=== PATIENT | male | born 1960 | race Caucasian/White ===

== ENCOUNTER 2021-02-23 15:01 | Emergency (ER) | payer MEDICAID ==
[~2021-02-23] VITALS: Ht 182.9 cm; Wt 129.0 kg
[~2021-02-23 15:01] MED LIST: ALBU8.5H17 INH; ATRIN IH; BUDE10.2 INH; GABA300C PO; IPRA3AMP9 IH; LEVE10002 PO; PRED20TA PO
[2021-02-23 15:28] VITALS: BP 159/85
== END 2021-02-23 20:34 | disposition left against medical advice (07) ==
LOC: MERGE 15:02 → ER 15:02
DX: R00.1 Bradycardia, unspecified (principal); Z53.21 Procedure and treatment not carried out due to patient leaving prior to being seen by health care provider
CPT/HCPCS: 93005

== ENCOUNTER 2021-02-25 00:40 | Inpatient (IN) | payer MEDICAID, OTHER ==
[~2021-02-25] VITALS: Ht 188 cm; Wt 135.0 kg
[2021-02-25] MEDS ORDERED: normal saline 1000ML IV soln IVB ONE (00:45)
[2021-02-25] MEDS ORDERED: diazepam inj 5 MG/ML inj. IV ONE (00:45)
[2021-02-25] MEDS ORDERED: LORazepam 2 mg/ml vial IM ONE (00:45)
[2021-02-25] MEDS ORDERED: haloperidol lactate 5mg/ml inj IM ONE (00:45)
[2021-02-25] MEDS ORDERED: diphenhydrAMINE 50 mg/ml inj IM ONE (00:45)
[2021-02-25] MEDS ORDERED: ketamine 10mg/ml 20ml inj vial IM ONE (01:00)
[2021-02-25] MEDS ORDERED: ketamine 50mg/5ml syringe IM ONE (01:05)
[2021-02-25] MEDS ORDERED: ketamine 50mg/5ml syringe ONE (01:06)
[2021-02-25 01:11] LABS: BASOPHILS # (AUTO) 0.1 X10'3 (0-0.2); BASOPHILS % (AUTO) 0.4 % (0-1); EOSINOPHILS % (AUTO) 0.3 % (0-6); HEMATOCRIT 35.5 % (42.0-52.0); LYMPHOCYTES # (AUTO) 1.9 X10'3 (1.1-4.8); LYMPHOCYTES % (AUTO) 12.6 % (21-51); MEAN CORPUSCULAR HEMOGLOBIN 31.6 PG (27.0-31.0); MEAN CORPUSCULAR HGB CONC 33.9 g/dL (33.0-36.5); MEAN CORPUSCULAR VOLUME 93.3 FL (78-98); MEAN PLATELET VOLUME 8.5 FL (7.4-10.4); MONOCYTES # (AUTO) 1.5 X10'3 (0-0.9); NEUTROPHILS # (AUTO) 11.3 X10'3 (1.8-7.7); NEUTROPHILS % (AUTO) 76.7 % (42-75); PLATELET COUNT 226 X10'3 (140-440); RED BLOOD COUNT 3.81 X10'6 (4.70-6.10); RED CELL DISTRIBUTION WIDTH 12.9 % (11.5-14.5); WHITE BLOOD COUNT 14.8 X10'3 (4.5-11.0)
[2021-02-25 01:20] LABS: CLARITY,URINE CLEAR (Clear); COLOR,URINE YELLOW (Yellow); GLUCOSE, URINE NEGATIVE (Neg); KETONES,URINE 15 mg/dl (Neg); LEUKOCYTE ESTERASE ,URINE NEGATIVE (Neg); NITRITES, URINE NEGATIVE (Neg); OCCULT BLOOD,URINE TRACE-INTACT (Neg); PROTEIN,URINE 100 mg/dl (Neg)
[2021-02-25 01:22] LABS: UA COLLECTION TYPE STRAIGHT CATH
--- NOTE | 2021-02-25 01:23 | NUR ---
0121 PT HR 178 SVT BP 114/53 SPO2 100 ON 15 LPM NRB MASK RR 33 CO2 39 6MG ADENOSINE IN NO CHANGE 12MG ADENOSINE IN NO CHANGE FINAL 12MG ADENOSINE IN NO CHANGE 0126 150MG AMIODARONE PUSH
[2021-02-25 01:28] LABS: BACTERIA,URINE NONE SEEN /HPF (Neg); RBC,URINE 0-2 /HPF (0-2); WBC,URINE 0-4 /HPF (0-4)
[2021-02-25 01:29] LABS: MUCUS STRANDS FEW /LPF (Neg); SQUAMOUS EPITHELIAL CELL,UR FEW /LPF (FEW)
[2021-02-25 01:33] LABS: LACTIC SEPSIS 13.7 MMOL/L (0.4-2.0)
[2021-02-25] MEDS ORDERED: adenosine 3mg/ml 2ml vial IV ONE ×4 (01:35→09:00)
[2021-02-25] MEDS ORDERED: amiodarone 50MG/ML inj IV ONE ×2 (01:35→09:00)
[2021-02-25 01:36] LABS: ALANINE AMINOTRANSFERASE 32 U/L (12-78); ALBUMIN 3.6 G/DL (3.4-5.0); ALBUMIN/GLOBULIN RATIO 1.1 (1.1-1.5); ALKALINE PHOSPHATASE 79 IU/L (46-116); ANION GAP 20 (8-16); ASPARTATE AMINO TRANSFERASE 68 U/L (10-37); BILIRUBIN,TOTAL 0.8 MG/DL (0.1-1.0); BLOOD UREA NITROGEN 37 MG/DL (7-18); BUN/CREATININE RATIO 19.5 (5.4-32.0); CALCIUM 8.8 MG/DL (8.5-10.1); CHLORIDE 106 MMOL/L (99-107); GLUCOSE 125 MG/DL (70-104); POTASSIUM 4.9 MMOL/L (3.5-5.1); SODIUM 148 MMOL/L (135-145); TOTAL CARBON DIOXIDE 22.3 MMOL/L (24-32); TOTAL PROTEIN 6.9 G/DL (6.4-8.2); eGFR 37 ML/MIN
[2021-02-25 01:36] LABS: URINE AMPHETAMINE SCREEN POSITIVE (Neg); URINE BARBITUATE SCREEN NEGATIVE (Neg); URINE BENZODIAZEPINES SCREEN NEGATIVE (Neg); URINE CANNABINOID SCREEN POSITIVE (Neg); URINE COCAINE SCREEN NEGATIVE (Neg); URINE METHADONE SCREEN NEGATIVE (Neg); URINE OPIATE SCREEN NEGATIVE (Neg); URINE PHENCYCLIDINE SCREEN NEGATIVE (Neg)
[2021-02-25] MEDS ORDERED: amiodarone 150mg/dext, iso-os 100 ML IV ONE (01:40)
[2021-02-25 01:47] LABS: CKMB RELATIVE INDEX 0.4 RATIO (0-2.5); CREATINE KINASE 1833 U/L (39-308); ETHANOL < 0.010 GM/DL (0.0-0.010); TROPONIN I < 0.04 NG/ML (0.0-0.05)
[2021-02-25] MEDS ORDERED: LIDOcaine 2% 10ml TOPICAL JELLY (Urojet) TP ONE (01:55)
[2021-02-25] MEDS ORDERED: normal saline 1000ML IV soln IV ONE (01:55)
[2021-02-25] MEDS ORDERED: acetaminophen 1,000mg/100ml IV 100 ML IV ONE (03:29)
[2021-02-25 03:59] LABS: ABG BASE EXCESS -4.9 mmol/L (-2.0-2.0); ABG OXYGEN SATURATION 96.1 % (94-97); ABG PCO2 (T) 43.8 mmHg (35.0-48.0); ABG PO2 (T) 93.1 mmHg (75.0-100.0); ALLEN'S TEST Modified; FCOHb 0.4 % (0.0-3.9); FLOW 4 L/min; FMetHb 0.2 % (0.0-1.5); FO2Hb 95.5 % (94-97); PATIENT TEMPERATURE 37.9; TOTAL HEMOGLOBIN 11.9 G/dl (14.0-18.0)
[2021-02-25] MEDS ORDERED: ondansetron/PF 4mg/2ml inj IV PRN (05:45)
[2021-02-25] MEDS ORDERED: magnesium hydroxide 30ml (MOM) UD suspension PO PRN (05:45)
[2021-02-25] MEDS ORDERED: acetaminophen 325mg tablet PO PRN (05:45)
[2021-02-25] MEDS ORDERED: mag hydrox/Alum hydrox/simeth 30ml oral suspension PO PRN (05:45)
[2021-02-25] MEDS ORDERED: morphine 2 MG/ML inj. syringe IV PRN ×2 (05:45)
[2021-02-25] MEDS: docusate sod 100mg capsule PO SCH ×2 (07:16→20:00)
[2021-02-25 07:58] LABS: PHOSPHORUS 4.6 MG/DL (2.3-4.5)
[2021-02-25] MEDS ORDERED: magnesium Cl slow-release 64mg tablet PO PRN (08:20)
[2021-02-25] MEDS ORDERED: magnesium 4gm in 100ml NS 100 ML IV PRN (08:20)
[2021-02-25] MEDS ORDERED: haloperidol 5mg tablet PO PRN (08:20)
[2021-02-25] MEDS ORDERED: haloperidol lactate 5mg/ml inj IM PRN (08:20)
[2021-02-25] MEDS ORDERED: potassium Cl 40MEQ/1/2NS 520ml 520 ML IV PRN (08:20)
[2021-02-25] MEDS: dextrose 5%-1/2 normal saline 1,000 ML IV SCH ×3 (08:42→23:18)
[2021-02-25] MEDS: thiamine inj. 100 MG in normal saline 100ml IV soln 100 ML IV SCH (10:54)
[2021-02-25] MEDS ORDERED: UMEC62.5 PO (11:02)
[2021-02-25] MEDS ORDERED: ALBU8.5H17 IH (11:02)
[2021-02-25] MEDS ORDERED: LISI10TA27 PO (11:02)
[2021-02-25] MEDS: folic acid 1mg/0.2ml inj IV SCH (11:54)
--- NOTE | 2021-02-25 16:59 | NUR ---
RECEIVED REPORT FROM SOFÍA IN ER. PT ARRIVED TO FLOOR AT 1645. PT IN ROOM 4020A
[2021-02-25 18:00] VITALS: BP 154/70
--- NOTE | 2021-02-25 18:50 | NUR ---
Problems reprioritized. Patient report given, questions answered & plan of care reviewed with ALVARO ESPINOZA.
[2021-02-25] MEDS: K and/or MAG REPLACEMENT MC SCH (20:00)
[2021-02-25] MEDS: ipratropium 0.5 MG/2.5ML nebule NEB SCH (20:27)
[2021-02-25] MEDS: albuterol 2.5 MG/3 ML nebule NEB PRN (20:27)
[2021-02-25] MEDS: nicotine 14mg patch - 24hr TD SCH (21:07)
[2021-02-25] MEDS: LORazepam 2 mg/ml vial IV PRN (21:07)
[2021-02-25 22:00] VITALS: BP 117/52
--- NOTE | 2021-02-25 22:50 | NUR ---
Critical result from lab received. Gram + cocci in clusters growing. Paged Dr Siu. Will start abx.
[2021-02-26] MEDS: vancomycin/NS 1 GM ADD-VANTAGE 250 ML IV SCH ×3 (00:28→23:52)
[2021-02-26] MEDS: ipratropium 0.5 MG/2.5ML nebule NEB SCH ×4 (02:06→20:40)
[2021-02-26] MEDS: LORazepam 2 mg/ml vial IV PRN ×2 (03:07→20:06)
[2021-02-26 06:00] VITALS: BP 126/65
--- NOTE | 2021-02-26 06:25 | NUR ---
Patient in room [facility]TH[facility] 4020a. I have received report from ALVARO Moralez and had the opportunity to ask questions and assume patient care.
[2021-02-26 07:19] LABS: BASOPHILS % (AUTO) 0.2 % (0-1); EOSINOPHILS # (AUTO) 0.1 X10'3 (0-0.9); EOSINOPHILS % (AUTO) 0.6 % (0-6); HEMATOCRIT 33.3 % (42.0-52.0); HEMOGLOBIN 11.8 g/dl (14.0-17.9); LYMPHOCYTES # (AUTO) 1.6 X10'3 (1.1-4.8); LYMPHOCYTES % (AUTO) 15.9 % (21-51); MEAN CORPUSCULAR HEMOGLOBIN 32.3 PG (27.0-31.0); MEAN CORPUSCULAR HGB CONC 35.3 g/dL (33.0-36.5); MEAN CORPUSCULAR VOLUME 91.6 FL (78-98); MEAN PLATELET VOLUME 8.3 FL (7.4-10.4); MONOCYTES % (AUTO) 9.6 % (2-12); NEUTROPHILS # (AUTO) 7.5 X10'3 (1.8-7.7); NEUTROPHILS % (AUTO) 73.7 % (42-75); PLATELET COUNT 131 X10'3 (140-440); RED BLOOD COUNT 3.64 X10'6 (4.70-6.10); RED CELL DISTRIBUTION WIDTH 13.1 % (11.5-14.5); WHITE BLOOD COUNT 10.2 X10'3 (4.5-11.0)
[2021-02-26] MEDS: lisinopril 10 MG tablet PO SCH (07:53)
[2021-02-26] MEDS: folic acid 1mg/0.2ml inj IV SCH (08:00)
[2021-02-26] MEDS ORDERED: folic acid inj. 2 MG, thiamine inj. 100 MG, MVI, adult No.4 with vit. K 10 ML in dextro... IV SCH ×4 (08:00)
[2021-02-26] MEDS ORDERED: CefTRIAXone 2gm/D5W 50ml BAG 50 ML IV SCH (08:00)
[2021-02-26] MEDS: docusate sod 100mg capsule PO SCH ×2 (08:00→20:00)
[2021-02-26] MEDS: K and/or MAG REPLACEMENT MC SCH ×2 (08:00→20:00)
[2021-02-26] MEDS: thiamine inj. 100 MG in normal saline 100ml IV soln 100 ML IV SCH (08:45)
[2021-02-26] MEDS ORDERED: PERFLUTREN PROTEIN-A MICROSPHR (Optison) 0.22 MG/ML 3ML VIAL IV ONE (09:25)
[2021-02-26 09:57] LABS: ALANINE AMINOTRANSFERASE 75 U/L (12-78); ALBUMIN 2.5 G/DL (3.4-5.0); ALBUMIN/GLOBULIN RATIO 0.9 (1.1-1.5); ALKALINE PHOSPHATASE 60 IU/L (46-116); AMYLASE 13 U/L (25-115); ANION GAP 10 (8-16); ASPARTATE AMINO TRANSFERASE 252 U/L (10-37); BILIRUBIN,TOTAL 0.7 MG/DL (0.1-1.0); BLOOD UREA NITROGEN 21 MG/DL (7-18); BUN/CREATININE RATIO 25.3 (5.4-32.0); CHLORIDE 105 MMOL/L (99-107); CREATININE 0.83 MG/DL (0.60-1.10); GLUCOSE 127 MG/DL (70-104); LIPASE < 50 U/L (73-393); MAGNESIUM 2.2 MG/DL (1.5-2.4); PHOSPHORUS 1.8 MG/DL (2.3-4.5); SODIUM 141 MMOL/L (135-145); TOTAL CARBON DIOXIDE 25.9 MMOL/L (24-32); TOTAL PROTEIN 5.2 G/DL (6.4-8.2); eGFR > 90 ML/MIN
[2021-02-26 10:00] VITALS: BP 162/81
[2021-02-26 10:01] LABS: POTASSIUM 2.8 MMOL/L (3.5-5.1)
--- NOTE | 2021-02-26 10:04 | NUR ---
Page Sent PAGER ID: [phone] MESSAGE: GEORGES [id number] RE: SVETLANA TORRES [id number] PT'S HAS CRITICAL K+ 2.8. WILL BEGIN REPLACEMENT. THANKS
--- NOTE | 2021-02-26 11:05 | NUR ---
Malnutrition Consult: Pt admit DX acute encephalopathy, meth abuse, SHILOH, and possible rhabdomyolysis r/t meth per MD note. Pt has no significant weakness noted, PO 50% first regular diet meal last night, appears well-developed and obese per ER note, and pending scaled wt this admit. Noted BLE +2 edema present however pt appears well-nourished during RD visit and currently lacks minimum two malnutrition criteria at this time. Will continue to monitor for additional malnutrition criteria this admit. Addendum: 02/26/21 at [address] Amended: Links added.
[2021-02-26] MEDS: dextrose 5%-1/2 normal saline 1,000 ML IV SCH ×2 (11:08→21:45)
[2021-02-26] MEDS: piperacillin/tazo 3.375gm/50ml 50 ML IV SCH ×2 (11:08→17:44)
[2021-02-26] MEDS: potassium Cl 20 mEq SR tablet PO PRN ×3 (11:08→20:06)
--- NOTE | 2021-02-26 11:57 | NUR ---
Page Sent PAGER ID: [phone] MESSAGE: GEORGES [phone] RE: SVETLANA TORRES [id number] PT'S PHOSPHORUS WAS LOW, 1.8. WOULD YOU LIKE ME TO REPLACE? THANK YOU
--- NOTE | 2021-02-26 13:43 | NUR ---
Page Sent PAGER ID: [phone] MESSAGE: GEORGES [phone] RE: SVETLANA TORRES 2090A PT HAS HAD LOOSE STOOL SINCE YESTERDAY. SENDING STOOL SAMPLE TO LAB. CAN I GET AN ORDER FOR IMMODIUM? THANK YOU
[2021-02-26] MEDS: loperamide 2mg capsule PO PRN (13:57)
[2021-02-26 17:33] LABS: C DIFF ANTIGEN NEGATIVE (NEGATIVE); C DIFF SPECIMEN=DIARRHEA? ACCEPTABLE; C DIFFICILE TOXINS A&B NEGATIVE (Neg)
[2021-02-26 18:00] VITALS: BP 104/61
--- NOTE | 2021-02-26 18:39 | NUR ---
Problems reprioritized. Patient report given, questions answered & plan of care reviewed with ALVARO CARABALLO.
[2021-02-26] MEDS: nicotine 14mg patch - 24hr TD SCH (20:09)
[2021-02-26] MEDS: albuterol 2.5 MG/3 ML nebule NEB PRN (20:40)
[2021-02-26 22:00] VITALS: BP 99/57
[2021-02-27] MEDS: piperacillin/tazo 3.375gm/50ml 50 ML IV SCH ×3 (01:30→15:35)
[2021-02-27] MEDS: ipratropium 0.5 MG/2.5ML nebule NEB SCH ×4 (02:39→21:03)
[2021-02-27 06:00] VITALS: BP 110/53
[2021-02-27 06:25] LABS: BASOPHILS % (AUTO) 0.4 % (0-1); EOSINOPHILS # (AUTO) 0.3 X10'3 (0-0.9); EOSINOPHILS % (AUTO) 2.9 % (0-6); HEMATOCRIT 35.1 % (42.0-52.0); HEMOGLOBIN 12.1 g/dl (14.0-17.9); LYMPHOCYTES # (AUTO) 1.4 X10'3 (1.1-4.8); MEAN CORPUSCULAR HEMOGLOBIN 32.3 PG (27.0-31.0); MEAN CORPUSCULAR HGB CONC 34.5 g/dL (33.0-36.5); MEAN CORPUSCULAR VOLUME 93.6 FL (78-98); MEAN PLATELET VOLUME 8.4 FL (7.4-10.4); MONOCYTES # (AUTO) 0.7 X10'3 (0-0.9); MONOCYTES % (AUTO) 7.9 % (2-12); NEUTROPHILS # (AUTO) 6.4 X10'3 (1.8-7.7); NEUTROPHILS % (AUTO) 72.8 % (42-75); PLATELET COUNT 147 X10'3 (140-440); RED BLOOD COUNT 3.75 X10'6 (4.70-6.10); RED CELL DISTRIBUTION WIDTH 13.2 % (11.5-14.5); WHITE BLOOD COUNT 8.7 X10'3 (4.5-11.0)
--- NOTE | 2021-02-27 06:44 | NUR ---
Patient in room [facility]TH[facility] 4020. I have received report from ALIZA JOHN AND KENTON JOHN and had the opportunity to ask questions and assume patient care.
--- NOTE | 2021-02-27 06:51 | NUR ---
Problems reprioritized. Patient report given, questions answered & plan of care reviewed with ALVARO TAN.
[2021-02-27 07:07] LABS: ALANINE AMINOTRANSFERASE 60 U/L (12-78); ALBUMIN 2.4 G/DL (3.4-5.0); ALBUMIN/GLOBULIN RATIO 0.8 (1.1-1.5); ALKALINE PHOSPHATASE 64 IU/L (46-116); AMYLASE 17 U/L (25-115); ANION GAP 8 (8-16); ASPARTATE AMINO TRANSFERASE 140 U/L (10-37); BILIRUBIN,TOTAL 0.5 MG/DL (0.1-1.0); BLOOD UREA NITROGEN 9 MG/DL (7-18); BUN/CREATININE RATIO 12.2 (5.4-32.0); CALCIUM 7.8 MG/DL (8.5-10.1); CHLORIDE 109 MMOL/L (99-107); CREATININE 0.74 MG/DL (0.60-1.10); GLUCOSE 106 MG/DL (70-104); LIPASE 56 U/L (73-393); MAGNESIUM 2.2 MG/DL (1.5-2.4); PHOSPHORUS 2.2 MG/DL (2.3-4.5); POTASSIUM 3.3 MMOL/L (3.5-5.1); SODIUM 144 MMOL/L (135-145); TOTAL PROTEIN 5.4 G/DL (6.4-8.2); eGFR > 90 ML/MIN
[2021-02-27 07:57] LABS: CREATINE KINASE 6963 U/L (39-308)
[2021-02-27] MEDS: docusate sod 100mg capsule PO SCH ×2 (08:00→20:00)
[2021-02-27] MEDS: K and/or MAG REPLACEMENT MC SCH ×2 (08:00→20:00)
[2021-02-27] MEDS ORDERED: LORazepam 2 mg/ml vial IV PRN (08:20)
[2021-02-27] MEDS: folic acid 1mg/0.2ml inj IV SCH (08:57)
[2021-02-27] MEDS: thiamine inj. 100 MG in normal saline 100ml IV soln 100 ML IV SCH (08:57)
[2021-02-27] MEDS: nicotine 14mg patch - 24hr TD SCH (08:58)
[2021-02-27] MEDS: lisinopril 10 MG tablet PO SCH (09:02)
[2021-02-27] MEDS: heparin, porcine 5000 units/ml vial SQ SCH ×2 (09:04→19:55)
[2021-02-27] MEDS: LORazepam 1 MG tablet PO PRN ×2 (09:05→19:57)
[2021-02-27] MEDS: albuterol 2.5 MG/3 ML nebule NEB PRN (09:31)
[2021-02-27] MEDS: potassium Cl 20 mEq SR tablet PO PRN ×3 (09:39→19:55)
[2021-02-27] MEDS: normal saline 1000ml 1,000 ML IV SCH ×3 (09:44→22:00)
[2021-02-27 10:00] VITALS: BP 135/67
[2021-02-27] MEDS ORDERED: VANCOMYCIN LEVEL IV ONE (11:30)
[2021-02-27] MEDS: vancomycin/NS 1 GM ADD-VANTAGE 250 ML IV SCH (13:51)
[2021-02-27] MEDS: acetaminophen 325mg tablet PO PRN (14:23)
[2021-02-27 18:00] VITALS: BP 113/65
--- NOTE | 2021-02-27 18:13 | NUR ---
Problems reprioritized. Patient report given, questions answered & plan of care reviewed with FIDE JOHN.
--- NOTE | 2021-02-27 18:15 | NUR ---
Patient in room ORTH[facility] 4020. I have received report from Namrata JOHN and had the opportunity to ask questions and assume patient care.
[2021-02-27 22:00] VITALS: BP 150/73
[2021-02-27] MEDS: VANCOmycin 1250MG/NS 250ml Bag 250 ML IV SCH (22:30)
[2021-02-28] MEDS: piperacillin/tazo 3.375gm/50ml 50 ML IV SCH ×2 (00:04→08:50)
[2021-02-28] MEDS: ipratropium 0.5 MG/2.5ML nebule NEB SCH ×4 (03:00→20:36)
[2021-02-28] MEDS: normal saline 1000ml 1,000 ML IV SCH ×3 (04:40→17:48)
[2021-02-28] MEDS: VANCOmycin 1250MG/NS 250ml Bag 250 ML IV SCH ×2 (05:42→13:35)
[2021-02-28 06:00] VITALS: BP 155/68
[2021-02-28 06:11] LABS: BASOPHILS # (AUTO) 0.1 X10'3 (0-0.2); EOSINOPHILS # (AUTO) 0.3 X10'3 (0-0.9); HEMATOCRIT 36.1 % (42.0-52.0); MEAN CORPUSCULAR VOLUME 95.1 FL (78-98); MEAN PLATELET VOLUME 8.5 FL (7.4-10.4); WHITE BLOOD COUNT 6.8 X10'3 (4.5-11.0)
[2021-02-28 06:15] LABS: BASOPHILS % (AUTO) 0.8 % (0-1); EOSINOPHILS % (AUTO) 4.3 % (0-6); HEMOGLOBIN 12.3 g/dl (14.0-17.9); LYMPHOCYTES # (AUTO) 1.3 X10'3 (1.1-4.8); LYMPHOCYTES % (AUTO) 19.6 % (21-51); MEAN CORPUSCULAR HEMOGLOBIN 32.3 PG (27.0-31.0); MONOCYTES # (AUTO) 0.6 X10'3 (0-0.9); MONOCYTES % (AUTO) 8.3 % (2-12); NEUTROPHILS # (AUTO) 4.5 X10'3 (1.8-7.7); PLATELET COUNT 171 X10'3 (140-440); RED CELL DISTRIBUTION WIDTH 13.4 % (11.5-14.5)
--- NOTE | 2021-02-28 06:15 | NUR ---
Problems reprioritized. Patient report given, questions answered & plan of care reviewed with Namrata JOHN.
--- NOTE | 2021-02-28 06:17 | NUR ---
Patient in room ORTH[facility] 4020. I have received report from toñito medina and had the opportunity to ask questions and assume patient care.
[2021-02-28 06:52] LABS: ALANINE AMINOTRANSFERASE 60 U/L (12-78); ALBUMIN 2.5 G/DL (3.4-5.0); ALBUMIN/GLOBULIN RATIO 0.8 (1.1-1.5); ALKALINE PHOSPHATASE 66 IU/L (46-116); AMYLASE 18 U/L (25-115); ANION GAP 9 (8-16); ASPARTATE AMINO TRANSFERASE 108 U/L (10-37); BILIRUBIN,TOTAL 0.4 MG/DL (0.1-1.0); BLOOD UREA NITROGEN 6 MG/DL (7-18); BUN/CREATININE RATIO 8.3 (5.4-32.0); CALCIUM 8.3 MG/DL (8.5-10.1); CHLORIDE 109 MMOL/L (99-107); CREATININE 0.72 MG/DL (0.60-1.10); GLUCOSE 98 MG/DL (70-104); LIPASE 70 U/L (73-393); PHOSPHORUS 2.8 MG/DL (2.3-4.5); POTASSIUM 3.6 MMOL/L (3.5-5.1); SODIUM 143 MMOL/L (135-145); TOTAL CARBON DIOXIDE 24.7 MMOL/L (24-32); TOTAL PROTEIN 5.7 G/DL (6.4-8.2); eGFR > 90 ML/MIN
[2021-02-28 07:06] LABS: CREATINE KINASE 4254 U/L (39-308)
[2021-02-28] MEDS: lisinopril 10 MG tablet PO SCH (07:42)
[2021-02-28] MEDS: nicotine 14mg patch - 24hr TD SCH (07:43)
[2021-02-28] MEDS: heparin, porcine 5000 units/ml vial SQ SCH ×2 (07:43→19:48)
[2021-02-28] MEDS: folic acid 1mg/0.2ml inj IV SCH (07:44)
[2021-02-28] MEDS: thiamine inj. 100 MG in normal saline 100ml IV soln 100 ML IV SCH (07:45)
[2021-02-28] MEDS: LORazepam 1 MG tablet PO PRN (07:50)
[2021-02-28] MEDS: docusate sod 100mg capsule PO SCH ×2 (07:58→20:00)
[2021-02-28] MEDS: K and/or MAG REPLACEMENT MC SCH ×2 (08:00→19:30)
[2021-02-28 10:00] VITALS: BP 123/75
[2021-02-28] MEDS: gabapentin 300mg capsule PO SCH ×3 (10:23→19:47)
[2021-02-28] MEDS: levetiracetam 250mg tablet PO SCH ×2 (10:23→19:48)
[2021-02-28] MEDS ORDERED: NALO4SPR BOTHNARES (10:31)
[2021-02-28] MEDS ORDERED: iohexol 300mg/ml 100ml inj. ONE (11:20)
[2021-02-28 18:00] VITALS: BP 152/79
--- NOTE | 2021-02-28 18:40 | NUR ---
Problems reprioritized. Patient report given, questions answered & plan of care reviewed with Ophelia JOHN.
[2021-02-28] MEDS: loperamide 2mg capsule PO PRN (19:55)
[2021-02-28] MEDS ORDERED: VANCOMYCIN LEVEL IV ONE (21:30)
[2021-02-28 22:00] VITALS: BP 156/82
[2021-03-01] MEDS: ipratropium 0.5 MG/2.5ML nebule NEB SCH ×2 (02:57→08:32)
[2021-03-01] MEDS: normal saline 1000ml 1,000 ML IV SCH (04:55)
[2021-03-01 06:00] VITALS: BP 159/86
--- NOTE | 2021-03-01 06:22 | NUR ---
Problems reprioritized. Patient report given, questions answered & plan of care reviewed with ALVARO Ott.
--- NOTE | 2021-03-01 06:48 | NUR ---
Patient in room [facility]TH[facility] 4020. I have received report from ELENI JOHN and had the opportunity to ask questions and assume patient care.
[2021-03-01] MEDS: LORazepam 1 MG tablet PO PRN (07:57)
[2021-03-01] MEDS: nicotine 14mg patch - 24hr TD SCH (07:57)
[2021-03-01] MEDS: heparin, porcine 5000 units/ml vial SQ SCH (07:58)
[2021-03-01] MEDS: lisinopril 10 MG tablet PO SCH (07:59)
[2021-03-01] MEDS: levetiracetam 250mg tablet PO SCH (07:59)
[2021-03-01] MEDS: K and/or MAG REPLACEMENT MC SCH (08:00)
[2021-03-01] MEDS: gabapentin 300mg capsule PO SCH ×2 (08:00→13:14)
[2021-03-01] MEDS ORDERED: levoFLOXACIN-Levaquin 500mg/D5 100 ML IV SCH (08:00)
[2021-03-01] MEDS: docusate sod 100mg capsule PO SCH (08:00)
[2021-03-01] MEDS: folic acid 1mg/0.2ml inj IV SCH (08:01)
[2021-03-01] MEDS ORDERED: LORazepam 1 MG tablet PO PRN (08:20)
[2021-03-01] MEDS ORDERED: LORazepam 2 mg/ml vial IV PRN (08:20)
[2021-03-01] MEDS: thiamine inj. 100 MG in normal saline 100ml IV soln 100 ML IV SCH (09:21)
[2021-03-01] MEDS: acetaminophen 325mg tablet PO PRN (09:21)
[2021-03-01 10:00] VITALS: BP 126/74
[2021-03-01 10:35] LABS: BASOPHILS # (AUTO) 0.1 X10'3 (0-0.2); EOSINOPHILS # (AUTO) 0.2 X10'3 (0-0.9); EOSINOPHILS % (AUTO) 3.3 % (0-6); HEMOGLOBIN 13.3 g/dl (14.0-17.9); LYMPHOCYTES # (AUTO) 1.3 X10'3 (1.1-4.8); LYMPHOCYTES % (AUTO) 17.3 % (21-51); MEAN CORPUSCULAR HEMOGLOBIN 32.4 PG (27.0-31.0); MEAN CORPUSCULAR HGB CONC 34.9 g/dL (33.0-36.5); MEAN CORPUSCULAR VOLUME 92.8 FL (78-98); MONOCYTES # (AUTO) 0.8 X10'3 (0-0.9); MONOCYTES % (AUTO) 10.4 % (2-12); PLATELET COUNT 217 X10'3 (140-440); RED CELL DISTRIBUTION WIDTH 13.3 % (11.5-14.5); WHITE BLOOD COUNT 7.4 X10'3 (4.5-11.0)
[2021-03-01 10:57] LABS: ALANINE AMINOTRANSFERASE 97 U/L (12-78); ALBUMIN 2.7 G/DL (3.4-5.0); ALBUMIN/GLOBULIN RATIO 0.7 (1.1-1.5); ALKALINE PHOSPHATASE 77 IU/L (46-116); AMYLASE 22 U/L (25-115); ANION GAP 7 (8-16); ASPARTATE AMINO TRANSFERASE 77 U/L (10-37); BILIRUBIN,TOTAL 0.3 MG/DL (0.1-1.0); BLOOD UREA NITROGEN 8 MG/DL (7-18); BUN/CREATININE RATIO 9.9 (5.4-32.0); CALCIUM 8.8 MG/DL (8.5-10.1); CHLORIDE 109 MMOL/L (99-107); CREATINE KINASE 790 U/L (39-308); CREATININE 0.81 MG/DL (0.60-1.10); GLUCOSE 126 MG/DL (70-104); LIPASE 71 U/L (73-393); MAGNESIUM 1.9 MG/DL (1.5-2.4); PHOSPHORUS 3.4 MG/DL (2.3-4.5); POTASSIUM 3.7 MMOL/L (3.5-5.1); SODIUM 142 MMOL/L (135-145); TOTAL CARBON DIOXIDE 26.1 MMOL/L (24-32); TOTAL PROTEIN 6.6 G/DL (6.4-8.2); eGFR > 90 ML/MIN
[2021-03-01] MEDS ORDERED: NICO-631 TD (11:33)
== END 2021-03-01 16:00 | disposition home or self-care (01) | DRG 812 ==
LOC: ER 00:41 → EDBD 05:44 → ED HOLD 05:44 → ORTHO 4S 16:45
PROVIDERS: ADMIT Internal Medicine; ATTEND Family Medicine
DX: T43.621A Poisoning by amphetamines, accidental (unintentional), initial encounter (principal); J96.01 Acute respiratory failure with hypoxia; G92 Toxic encephalopathy; E72.20 Disorder of urea cycle metabolism, unspecified; N17.9 Acute kidney failure, unspecified; E66.01 Morbid (severe) obesity due to excess calories; E87.2 Acidosis; I47.1 Supraventricular tachycardia; E86.0 Dehydration; Z20.822 Contact with and (suspected) exposure to COVID-19; M17.11 Unilateral primary osteoarthritis, right knee; E87.6 Hypokalemia; F12.10 Cannabis abuse, uncomplicated; F15.10 Other stimulant abuse, uncomplicated; G40.909 Epilepsy, unspecified, not intractable, without status epilepticus; J44.9 Chronic obstructive pulmonary disease, unspecified; M62.82 Rhabdomyolysis; Z59.0 Homelessness; Z68.38 Body mass index [BMI] 38.0-38.9, adult; Z78.1 Physical restraint status; Y92.89 Other specified places as the place of occurrence of the external cause
CPT/HCPCS: 36415; 36600; 70450; 71045; 71250; 71260; 73560; 74176; 80053; 80202; 80305; 80320; 81001; 82140; 82150; 82550; 82553; 82803; 83605; 83690; 83735; 83880; 84100; 84145; 84484; 85018; 85025; 85610; 87040; 87077; 87081; 87186; 87324; 87449; 87635; 93005; 93306; 94640; 94760; 94799; 97110; 97116; 97161; 97530; 99291; C9803; G0378; J0131; J0153; J0696; J1200; J1630; J1644; J1956; J2060; J2543; J3360; J3370; J3411; J3490; J7030; Q9967

== ENCOUNTER 2021-06-01 15:11 | Emergency (ER) | payer MEDICAID ==
[~2021-06-01] VITALS: Ht 182.9 cm; Wt 136.4 kg
[~2021-06-01 15:11] MED LIST changes: +ALBU8.5H17 IH; -ALBU8.5H17 INH; -ATRIN IH; -IPRA3AMP9 IH; +LISI10TA27 PO; +NICO-631 TD; -PRED20TA PO
[2021-06-01 15:22] VITALS: BP 129/73
== END 2021-06-01 18:24 | disposition left against medical advice (07) ==
LOC: ER 15:12
DX: M79.601 Pain in right arm (principal); M79.602 Pain in left arm; Z53.21 Procedure and treatment not carried out due to patient leaving prior to being seen by health care provider
CPT/HCPCS: 93005

== ENCOUNTER 2021-11-07 01:04 | Emergency (ER) | payer SELFPAY ==
--- NOTE | 2021-11-07 01:18 | NUR ---
PT REFUSED TO BE TRIAGED AFTER BEING TOLD HE WAS GOING TO SEE THE DOCTOR, RAMBLING ABOUT NOT BEING ABLE TO GET HIS MEDS, RAPID SPEECH THAT WAS DIFFICULT TO UNDERSTAND. PT ADMITTED TO USING METHAMPHETAMINE, STATED "NOT FOR 72 HOURS". PT WALKED OUT OF TRIAGE, LEFT WITHOUT BEING SEEN. PT STATED HE WAS JUST WORRIED ABOUT HIS PULSE, WHICH WAS 106. PT WAS ENCOURAGED TO STAY AND SEE THE DOCTOR AND ENCOURAGED TO STOP USING METH. PT REFUSED TO STAY
== END 2021-11-07 01:21 | disposition left against medical advice (07) ==
LOC: ER 01:04
DX: R00.2 Palpitations (principal); Z53.21 Procedure and treatment not carried out due to patient leaving prior to being seen by health care provider

== ENCOUNTER 2023-06-02 15:33 | Emergency (ER) | payer MEDICAID ==
[~2023-06-02] VITALS: Ht 182.9 cm; Wt 163.6 kg
[~2023-06-02 15:33] MED LIST changes: +IBUP-1984 PO; +LACT1CAP26 PO; -NICO-631 TD
[2023-06-02 15:37] VITALS: BP 161/80; PULSE 113; RESP 18; TEMP 97.5; O2SAT 95
[2023-06-02 18:20] LABS: BASOPHILS # (AUTO) 0.1 X10'3 (0-0.2); BASOPHILS % (AUTO) 0.6 % (0-1); EOSINOPHILS % (AUTO) 0 % (0-6); HEMATOCRIT 37.2 % (42.0-52.0); HEMOGLOBIN 12.8 g/dl (14.0-17.9); LYMPHOCYTES # (AUTO) 0.7 X10'3 (1.1-4.8); LYMPHOCYTES % (AUTO) 5.6 % (21-51); MEAN CORPUSCULAR HEMOGLOBIN 30.9 PG (27.0-31.0); MEAN CORPUSCULAR HGB CONC 34.3 g/dL (33.0-36.5); MEAN PLATELET VOLUME 7.6 FL (7.4-10.4); MONOCYTES # (AUTO) 1.2 X10'3 (0-0.9); NEUTROPHILS # (AUTO) 10.1 X10'3 (1.8-7.7); NEUTROPHILS % (AUTO) 83.8 % (42-75); PLATELET COUNT 216 X10'3 (140-440); RED BLOOD COUNT 4.14 X10'6 (4.70-6.10); RED CELL DISTRIBUTION WIDTH 12.9 % (11.5-14.5); WHITE BLOOD COUNT 12.1 X10'3 (4.5-11.0)
[2023-06-02 18:46] LABS: ALANINE AMINOTRANSFERASE 113 U/L (12-78); ALBUMIN 3.8 G/DL (3.4-5.0); ALKALINE PHOSPHATASE 78 IU/L (46-116); ANION GAP 15 (8-16); ASPARTATE AMINO TRANSFERASE 253 U/L (10-37); BILIRUBIN,TOTAL 1.1 MG/DL (0.1-1.0); BLOOD UREA NITROGEN 42 MG/DL (7-18); BUN/CREATININE RATIO 39.3 (10.0-20.0); CALCIUM 8.9 MG/DL (8.5-10.1); CHLORIDE 96 MMOL/L (99-107); CREATININE 1.07 MG/DL (0.60-1.10); GLUCOSE 116 MG/DL (70-104); POTASSIUM 3.2 MMOL/L (3.5-5.1); SODIUM 133 MMOL/L (135-145); TOTAL CARBON DIOXIDE 22.4 MMOL/L (24-32); TOTAL PROTEIN 7.5 G/DL (6.4-8.2); eCRCL 80 ML/MIN; eGFR 70 ML/MIN
[2023-06-02 18:53] LABS: PRO BRAIN NATRIURETIC PEPTIDE 404 PG/ML (0-125)
[2023-06-02] MEDS ORDERED: magnesium oxide 400mg tablet PO ONE (20:10)
[2023-06-02] MEDS ORDERED: potassium Cl 20 mEq SR tablet PO ONE (20:10)
[2023-06-02] MEDS ORDERED: carVEDilol 3.125mg tablet PO ONE (20:10)
[2023-06-02] MEDS ORDERED: aspirin 325mg tablet PO ONE (20:10)
[2023-06-02] MEDS ORDERED: furosemide 20MG tablet PO ONE (20:10)
[2023-06-02 20:14] LABS: ETHANOL < 10 MG/DL (<10); MAGNESIUM 2.2 MG/DL (1.5-2.4); THYROID STIMULATING HORMONE 1.42 ulU/ml (0.34-4.50)
[2023-06-02] MEDS ORDERED: CARV3.12 PO (21:23)
[2023-06-02] MEDS ORDERED: FURO-150 PO (21:23)
== END 2023-06-02 20:28 | disposition left against medical advice (07) ==
LOC: ER 15:34
DX: R55 Syncope and collapse (principal); R22.43 Localized swelling, mass and lump, lower limb, bilateral; I11.0 Hypertensive heart disease with heart failure; I50.813 Acute on chronic right heart failure; E87.5 Hyperkalemia; R74.01 Elevation of levels of liver transaminase levels; F15.10 Other stimulant abuse, uncomplicated; G40.909 Epilepsy, unspecified, not intractable, without status epilepticus; J44.9 Chronic obstructive pulmonary disease, unspecified; Z59.00 Homelessness unspecified; Z72.89 Other problems related to lifestyle; Z88.0 Allergy status to penicillin; Z88.1 Allergy status to other antibiotic agents; Z79.899 Other long term (current) drug therapy; Z59.02 Unsheltered homelessness
CPT/HCPCS: 36415; 71045; 80053; 80320; 83735; 83880; 84443; 84484; 85025; 93005; 99285

== ENCOUNTER 2023-06-04 00:04 | Emergency (ER) | payer MEDICAID ==
[~2023-06-04] VITALS: Ht 182.9 cm; Wt 135.9 kg
[~2023-06-04 00:04] MED LIST changes: +CARV3.12 PO; +FURO-150 PO
[2023-06-04 00:06] VITALS: BP 160/76; PULSE 108; RESP 16; TEMP 99; O2SAT 95
== END 2023-06-04 02:13 | disposition home or self-care (01) ==
LOC: ER 00:05
DX: R45.4 Irritability and anger (principal); R45.1 Restlessness and agitation; Z76.0 Encounter for issue of repeat prescription; I11.0 Hypertensive heart disease with heart failure; I50.9 Heart failure, unspecified; J44.9 Chronic obstructive pulmonary disease, unspecified; F15.90 Other stimulant use, unspecified, uncomplicated; Z59.00 Homelessness unspecified; Z90.49 Acquired absence of other specified parts of digestive tract; Z88.8 Allergy status to other drugs, medicaments and biological substances; Z79.2 Long term (current) use of antibiotics; Z88.1 Allergy status to other antibiotic agents; Z79.899 Other long term (current) drug therapy
CPT/HCPCS: 99281

== ENCOUNTER 2023-10-26 22:11 | Emergency (ER) | payer MEDICAID ==
[~2023-10-26] VITALS: Ht 182.9 cm; Wt 90.0 kg
[2023-10-26 22:17] VITALS: TEMP 98.2
[2023-10-27] MEDS ORDERED: morphine 4 MG/ML inj SYRINge IV ONE (00:40)
[2023-10-27] MEDS: normal saline 1000ml 1,000 ML IV ONE (01:05)
[2023-10-27] MEDS: cefepime 2g/NS 100ml ADVANTAGE 100 ML IV SCH (01:06)
[2023-10-27 01:13] LABS: BASOPHILS # (AUTO) 0.1 X10'3 (0-0.2); BASOPHILS % (AUTO) 0.7 % (0-1); EOSINOPHILS # (AUTO) 0.1 X10'3 (0-0.9); EOSINOPHILS % (AUTO) 1.4 % (0-6); HEMATOCRIT 42.6 % (42.0-52.0); HEMOGLOBIN 14.3 g/dl (14.0-17.9); LYMPHOCYTES # (AUTO) 1.9 X10'3 (1.1-4.8); LYMPHOCYTES % (AUTO) 18.5 % (21-51); MEAN CORPUSCULAR HGB CONC 33.5 g/dL (33.0-36.5); MEAN CORPUSCULAR VOLUME 89.7 FL (78-98); MEAN PLATELET VOLUME 8.2 FL (7.4-10.4); MONOCYTES # (AUTO) 0.8 X10'3 (0-0.9); MONOCYTES % (AUTO) 7.8 % (2-12); NEUTROPHILS # (AUTO) 7.5 X10'3 (1.8-7.7); NEUTROPHILS % (AUTO) 71.6 % (42-75); PLATELET COUNT 201 X10'3 (140-440); RED BLOOD COUNT 4.75 X10'6 (4.70-6.10); RED CELL DISTRIBUTION WIDTH 16.2 % (11.5-14.5); WHITE BLOOD COUNT 10.5 X10'3 (4.5-11.0)
[2023-10-27 01:23] LABS: ANION GAP 10 (8-16); BLOOD UREA NITROGEN 25 MG/DL (7-18); CALCIUM 9.5 MG/DL (8.5-10.1); CHLORIDE 102 MMOL/L (99-107); CREATININE 0.96 MG/DL (0.60-1.10); GLUCOSE 112 MG/DL (70-104); MAGNESIUM 2.2 MG/DL (1.5-2.4); POTASSIUM 3.9 MMOL/L (3.5-5.1); SODIUM 140 MMOL/L (135-145); TOTAL CARBON DIOXIDE 28.5 MMOL/L (24-32); eCRCL 88 ML/MIN; eGFR 79 ML/MIN
[2023-10-27 02:22] LABS: BILIRUBIN,URINE NEGATIVE (Neg); CLARITY,URINE CLOUDY (Clear); COLOR,URINE YELLOW (Yellow); GLUCOSE, URINE NEGATIVE (Neg); KETONES,URINE NEGATIVE (Neg); LEUKOCYTE ESTERASE ,URINE NEGATIVE (Neg); NITRITES, URINE NEGATIVE (Neg); OCCULT BLOOD,URINE TRACE-INTACT (Neg); PH,URINE 5.5 (4.8-8.0); PROTEIN,URINE TRACE mg/dl (Neg); UROBILINOGEN,URINE 0.2 E.U/dL (0.2-1.0)
[2023-10-27 02:27] LABS: UA COLLECTION TYPE CLN CATCH MIDSTREAM
[2023-10-27 02:38] LABS: WBC,URINE 0-4 /HPF (0-4)
[2023-10-27 02:41] LABS: BACTERIA,URINE FEW /HPF (Neg)
[2023-10-27 02:42] LABS: SQUAMOUS EPITHELIAL CELL,UR FEW /LPF (FEW)
[2023-10-27 02:43] LABS: COARSE GRANULAR CAST 0-3 /LPF (NEGATIVE); FINE GRANULAR CAST 0-3 /LPF (NEGATIVE)
[2023-10-27] MEDS: vancomycin/NS 1 GM ADD-VANTAGE 250 ML IV ONE (02:46)
[2023-10-27 03:00] VITALS: BP 119/73; PULSE 98; RESP 19; O2SAT 99
[2023-10-27] MEDS: ondansetron/PF 4mg/2ml inj IV ONE (03:13)
[2023-10-27] MEDS: HYDROcodone/acetaminophen 10/325mg tab PO ONE (03:33)
[2023-10-27] MEDS: acetaminophen 1,000mg/100ml IV 100 ML IV ONE (04:09)
[2023-10-27] MEDS ORDERED: SULF1TAB49 PO (04:19)
[2023-10-27] MEDS ORDERED: CEPH-585 PO (04:19)
== END 2023-10-27 04:56 | disposition home or self-care (01) ==
LOC: ER 22:11
DX: L03.116 Cellulitis of left lower limb (principal); I50.9 Heart failure, unspecified; I11.0 Hypertensive heart disease with heart failure; J44.9 Chronic obstructive pulmonary disease, unspecified; F15.90 Other stimulant use, unspecified, uncomplicated; Z88.8 Allergy status to other drugs, medicaments and biological substances; Z88.0 Allergy status to penicillin; Z88.1 Allergy status to other antibiotic agents; Z79.899 Other long term (current) drug therapy; Z79.2 Long term (current) use of antibiotics
CPT/HCPCS: 36415; 71045; 73630; 80048; 81001; 83605; 83735; 84145; 85025; 87040; 93005; 93971; 96365; 96366; 96368; 99285; J0692; J3370; J7030